=== PATIENT | male | born 1985 | race Caucasian/White ===

== ENCOUNTER 2018-03-11 08:24 | Emergency (ER) | payer OTHER ==
[2018-03-11 08:32] VITALS: BP 175/95; BMI 26.4
[2018-03-11] MEDS ORDERED: HYDROGEN PEROXIDE 3% ONE (08:37)
[2018-03-11] MEDS ORDERED: ADACEL TDaP IM ONE ×2 (08:40→08:45)
--- NOTE | 2018-03-11 09:22 | RAD ---
Right knee, two views Indication: Piece of metal from lawnmower hit lateral side of knee Comparison: None Findings: No acute fracture, malalignment or significant joint effusion is identified. Joint spaces a re preserved without appreciable arthropathy. There is a soft tissue laceration to the lateral aspect of the knee. No radiopaque foreign body is identified. Impression: Laceration to the lateral aspect of the knee without acute fracture or radiopaque foreign body. Reported By:
--- NOTE | 2018-03-11 09:24 | DR.EXTPAIN ---
HPI - Time seen Time seen: 09:10 - PCP Primary Care Physician: [email or web address] - HPI Comment HPI Comment: HAPPEN AT WORK. PATIENT WAS WWALKING IN AREA WHERE GRASS WAS BEING CUT. PIECE OF METAL HIT AND CUT HIM RT KNEE LAT ASPECT. 3CM LAC PRESENT. TD NOT UTD. - Complaint/Symptoms Chief Complaint Doctor Comments: PIECE OF METAL CUT PATIENT BEHIND RT KNEE ONE HOUR AGO. Chief Complaint:: pt stated someone was cutting grass and hit a piece of metal and it hit his right leg - Nurses notes reviewed Nurses Notes Review: Yes - Source History Provided: Patient - Mode of arrival Mode of Arrival: Wheelchair - Timing Onset of Chief Complaint: 03/11/18 - Context History of: None - Associated signs and symptoms Associated Signs and Symptoms: Pain, Other (LACERATION BEHIND RT KNEE.) PMH - PMH Past Medical History: Yes Past Medical History: Dyslipidemia Past Surgical History: No - Family History History of Family Medical Conditions: Yes Family Medical History: Diabetes Mellitus, Hypertension - Social History Does patient currently use any type of tobacco product: No Have you used tobacco products in the last 12 months: No Type of Tobacco Use: None Does any household member use tobacco: Yes Alcohol Use: Occasionally Do you use any recreational Drugs:: No Lives With: Family Lives Where: Home - infectious screening In the last 2 months have you had wt loss of >10#?: NO Have you had fever, night sweats or hemotysis?: No Have you traveled outside the country in the last 6 months?: No Isolation: Standard ROS - Review of Systems Constitutional: No Symptoms Reported Eyes: No Symptoms Reported ENTM: No Symptoms Reported Respiratoy: No Symptoms Reported Cardiovascular: No Symptoms Reported Gastrointestinal/Abdominal: No Symptoms Reported Genitourinary: No Symptoms Reported Neurological: No Symptoms Reported Musculoskeletal: No Symptoms Reported Integumentary: Change in Color, Wound (3CM LAC RT UPPER LEG.) Hematologic/Lymphatic: No Symptoms Reported Endocrine: No Symptoms Reported All Other Systems: Reviewed and Negative PE - Vital Signs Vitals: Temperature 96.8 F Pulse Rate 98 Respiratory Rate 16 Blood Pressure 175/95 O2 Sat by Pulse Oximetry 98 - General Limitations: No Limitations General Appearance: Alert - Head Head Exam: Normal Inspection - Eyes Eye exam: Normal Appearance - ENT ENT Exam: Normal External Ear Exam - Neck Neck Exam: Trachea Midline - Chest Chest Inspection: Symmetric Chest Wall Rise - Respiratory Respiratory Exam: Normal Lung Sounds Bilat Respiratory Exam: Bilateral Clear to Auscultation - Cardiovascular Cardiovascular Exam: Regular Rate, Normal Rhythm, Normal Heart Sounds - Abdominal Exam Abdominal Exam: Normal Inspection - Extremities Extremities Exam: Tenderness (3CM LAC POSTERIOR LAT UPPER LEG.) - Neurological Neurological Exam: Alert, Oriented X3 - Psychiatric Psychiatric Exam: Normal Affect, Normal Mood - Skin Skin Exam: Erythema Type of Lesion: Laceration (3CM LAC RT LEG.) MDM - Differential Diagnosis Differential Diagnosis: Contusion, Laceration (FB RT LEG) Course - Treatment Treatment: SEE ORDERS. TD GIVEN IN ED. - Reevaluation 1st: Improved (LAC CLOSE IN ED.) - Education/Counseling Education/Counseling: Patient, Education Educated On: Diagnosis, Needs for Follow Up ROR - XRAY XRAY Interpreted by: Radiologist XRAY Findings: REPORT DISCUSS WITH PATIENT. Procedures - Laceration/Wound Repair Right Knee Wound Length (cm): 3 Wound's Depth, Shape: Linear Wound Explored: contaminated Betadine Prep?: Yes Anesthesia: 1% Lidocaine Volume Anesthetic (ccs): 4 Wound Debrided: minimal Wound Repaired With: sutures Suture Size/Type: 4:0 Number of Sutures: 5 Layer Closure?: No Sterile Dressing Applied?: Yes Splint Applied?: No Sling Applied?: No - Diagnosis Discharge Problem: Laceration of right leg excluding thigh - Discharge Plan Condition: Stable Prescriptions: Cephalexin [KEFLEX CAP 500 MG *] 500 mg PO TID #21 cap Ibuprofen [MOTRIN TAB 600 MG *] 600 mg PO TID PRN #20 tab PRN Reason: Pain/Inflammation - Follow ups/Referrals Follow ups/Referrals: JOHAN CURRY [Primary Care Provider] - 3 days - Instructions Instructions: Laceration Care, Adult, [id number] Additional Instructions: RETURN TO ED IF WORSE. SUTURE OUT IN 10 DAYS
[2018-03-11] MEDS ORDERED: BACITRACIN ZINC ONE (09:37)
== END 2018-03-11 09:47 | disposition home or self-care (01) ==
LOC: ER 08:36
PROC: 0YQFXZZ Repair Right Knee Region, External Approach (ICD-10-PCS; principal; 2018-03-11)
DX: S81.811A Laceration without foreign body, right lower leg, initial encounter (principal); W45.8XXA Other foreign body or object entering through skin, initial encounter; Y92.9 Unspecified place or not applicable
CPT/HCPCS: 12002; 73560; 90471; 99282